=== PATIENT | female | born 1930 | race Caucasian/White ===

== ENCOUNTER 2017-07-18 13:19 | Emergency (ER) | payer MEDICARE, OTHER ==
[~2017-07-18] VITALS: Ht 170.2 cm; Wt 65.8 kg
[~2017-07-18 13:19] MED LIST: ACEBUTOLOL HCL200 MG PO; ACYCLOVIR400 MG PO; ADULT LOW DOSE81 MG PO; AMLODIPINE BESY10 MG PO; CALCIUM 500 +1 EAC1 PO; CALCIUM500 MG PO; CARTIA XT120 MG PO; CENTRUM SILVER1 EAC1 PO; CLINDAMYCIN HC300 MG PO; DOXAZOSIN MESYLA2 MG PO; FOSAMAX PLUS D1 EACH PO; LOSARTAN-HCTZ1 EAC1 PO; LOVASTATIN20 MG PO; METOPROLOL TART50 MG PO; MULTI VITAMIN1 EACH PO; NORCO 5-325 TA1 EACH PO; POTASSIUM CHLO20 ME1 PO; SYNTHROID112 MCG PO
[2017-07-18] MEDS ORDERED: ZITHROMAX250 MG PO (14:07)
--- OUTSIDE RECORDS SUMMARY | 2017-07-18 15:01 | XMS | Clinical Summary ---
Demographics + + + | Address | [address] | | | [place] [address] | + + + | Home Phone | | + + + | Preferred Language | Unknown | + + + | Marital Status | | + + + | Congregation Affiliation | Unknown | + + + | Race | White | + + + | Ethnic Group | Not or | + + + Author + + + | Author | [facility] | + + + | Organization | [facility] | + + + | Address | Unknown | + + + | Phone | Unavailable | + + + Support + + + + + | Name | Relationship | Address | Phone | + + + + + | Yari Lemon | ECON | [address] | | [place] | | [address] | | | | | [address] | | + + + + + Care Team Providers + +------+ + | Care Rice Farmworker Name | Role | Phone | + +------+ + | Chirag Starr MD | PP | | + +------+ + Source Comments [facility] is fully live on both [facility] and [facility]Patient.[facility] Allergies No Known Allergies Current Medications + + +-------+---------+------+------+-------+ | Prescription | Sig. | Disp. | Refills | Star | End | Statu | | | | | | t | Date | s | | | | | | Date | | | + + +-------+---------+------+------+-------+ | METOPROLOL | Take by mouth. | | | | | Activ | | TARTRATE ORAL | | | | | | e | + + +-------+---------+------+------+-------+ | POTASSIUM ORAL | Take by mouth. | | | | | Activ | | | | | | | | e | + + +-------+---------+------+------+-------+ | LOSARTAN POTASSIUM | Take by mouth. | | | | | Activ | | (LOSARTAN ORAL) | | | | | | e | + + +-------+---------+------+------+-------+ | ACYCLOVIR ORAL | Take by mouth. | | | | | Activ | | | | | | | | e | + + +-------+---------+------+------+-------+ | aspirin 325 mg | Take 325 mg by mouth | | | | | Activ | | Oral Tablet | once daily. | | | | | e | + + +-------+---------+------+------+-------+ | DOXAZOSIN MESYLATE | Take by mouth. | | | | | Activ | | (DOXAZOSIN ORAL) | | | | | | e | + + +-------+---------+------+------+-------+ | DILTIAZEM HCL | Take by mouth. | | | | | Activ | | (CARTIA XT ORAL) | | | | | | e | + + +-------+---------+------+------+-------+ | LOVASTATIN ORAL | Take by mouth. | | | | | Activ | | | | | | | | e | + + +-------+---------+------+------+-------+ | LEVOTHYROXINE | Take by mouth. | | | | | Activ | | SODIUM | | | | | | e | | (LEVOTHYROXINE ORAL) | | | | | | | + + +-------+---------+------+------+-------+ Active Problems + + + | Problem | Noted Date | + + + | Retinal edema | 07/03/2011 | + + + | Pseudophakia, both eyes | 07/03/2011 | + + + Encounters +--------+ + + + + | Date | Type | Specialty | Care Team | Description | +--------+ + + + + | 05/20/ | Hospital | | | | | 2017 | Encounter | | | | +--------+ + + + + | 04/21/ | Hospital | | | | | 2016 | Encounter | | | | +--------+ + + + + from Last 3 Months Social History + +-------+ +--------+------+ | Tobacco Use | Types | Packs/Day | Years | Date | | | | | Used | | + +-------+ +--------+------+ | Former Smoker | | | | | + +-------+ +--------+------+ + +---+---+---+ | Smokeless Tobacco: | | | | | Never Used | | | | + +---+---+---+ + + + | Sex Assigned at | Date Recorded | | | | + + + | Not on file | | + + + Plan of Treatment + + + + + | Health Maintenance | Due Date | Last Done | Comments | + + + + + | INFLUENZA VACCINE | | | | | (FLU SHOT) | 7 | | | + + + + + Results DERM PATHOLOGY (05/20/2017)Only the most recent of 2 results within the time period is incl uded. + + + + | Component | Value | Ref Range | + + + + | DERMATOPATHOLOGY(WET | SOURCE OF SPECIMEN:A Rt. sorensen, | | | MNT) | excision CLINICAL DESCRIPTION:R/o | | | | residual melanocytic nevus with atypical | | | | features; [id number]. GROSS | | | | DESCRIPTION:Received in formalin is a | | | | specimen labeled Yari Lemon:A: | | | | Specimen is labeled "Rt sorensen" and consists | | | | of an elliptical excision ofred-stahl skin, | | | | [id number]. The surgical margin is inked | | | | blue; the tissue isserially sectioned, and | | | | entirely submitted in cassette A1. | | | | MICROSCOPIC DESCRIPTION:There are an | | | | increased number of collagen bundles with | | | | fibrocytes arrangedparallel to the skin | | | | surface with vertically oriented blood | | | | vessels. DIAGNOSIS:SCAR. | | | | NOTE: No residual melanocytic neoplasm is | | | | seen in these sections; the rightshin | | | | melanocytic neoplasm is completely | | | | excised. My electronic signature | | | | indicates that I have personally reviewed | | | | alldiagnostic slides, the gross and/or | | | | microscopic portion of thisreport and | | | | formulated the final diagnosis. | | | | Electronically signed by: Henrietta | | | | Jaden OwensPathologistDate Completed: | | | | 05/22/2017 2:16PM | | | |Date Completed: 05/22/2017 2:16PM | | + + + + + + + | Specimen | Performing Laboratory | + + + | | [facility] DERMATOPATHOLOGY Mailcode CH5D [address] [facility] | | | [place] [address] | + + + from Last 3 Months
--- OUTSIDE RECORDS SUMMARY | 2017-07-18 15:01 | XMS | Encounter Summary ---
Demographics + + + | Address | [address] | | | [place] [address] | + + + | Home Phone | | + + + | Preferred Language | Unknown | + + + | Marital Status | | + + + | Bahai Affiliation | Unknown | + + + | Race | White | + + + | Ethnic Group | Not or | + + + Author + + + | Author | [facility] | + + + | Organization | [facility] | + + + | Address | Unknown | + + + | Phone | Unavailable | + + + Support + + + + + | Name | Relationship | Address | Phone | + + + + + | Yari Lemon | [place] | [address] | | | [place] | | [address] | | | | | [address] | | + + + + + Care Team Providers + +------+ + | Care Black Top Spreader Machine Operator Name | Role | Phone | + +------+ + | Chirag Starr MD | PCP | | + +------+ + Encounter Details +--------+ + + + + | Date | Type | Department | Care Team | Description | +--------+ + + + + | 05/20/ | Hospital | Dermatopathology | | | | 2018 | Encounter | [address] | | | | | | Mail Code: CH16D | | | | | | [facility] | | | | | | and Healing, 5th | | | | | | floor [place], [place] | | | | | | [address] | | | | | | [phone] | | | +--------+ + + + + Social History + +-------+ +--------+------+ | Tobacco [...] on file | | + + + as of this encounter Medications at Time of Discharge + + +-------+---------+--------+ + | Medication | Sig. | Disp. | Refills | Start | End Date | | | | | | Date | | + + +-------+---------+--------+ + | ACYCLOVIR ORAL | Take by mouth. | | | | | + + +-------+---------+--------+ + | aspirin 325 mg | Take 325 mg by mouth | | | | | | Oral Tablet | once daily. | | | | | + + +-------+---------+--------+ + | DILTIAZEM HCL | Take by mouth. | | | | | | (CARTIA XT ORAL) | | | | | | + + +-------+---------+--------+ + | DOXAZOSIN MESYLATE | Take by mouth. | | | | | | (DOXAZOSIN ORAL) | | | | | | + + +-------+---------+--------+ + | LEVOTHYROXINE | Take by mouth. | | | | | | SODIUM | | | | | | | (LEVOTHYROXINE ORAL) | | | | | | + + +-------+---------+--------+ + | LOSARTAN POTASSIUM | Take by mouth. | | | | | | (LOSARTAN ORAL) | | | | | | + + +-------+---------+--------+ + | LOVASTATIN ORAL | Take by mouth. | | | | | + + +-------+---------+--------+ + | METOPROLOL | Take by mouth. | | | | | | TARTRATE ORAL | | | | | | + + +-------+---------+--------+ + | POTASSIUM ORAL | Take by mouth. | | | | | + + +-------+---------+--------+ + as of this encounter Plan of Treatment Not on fileas of this encounter Results DERM PATHOLOGY (05/20/2017) + + + + | Component | Value | Ref Range | + + + + | DERMATOPATHOLOGY(WET | SOURCE OF SPECIMEN:A Rt. sorensen, | | | INDIANAT) | excision CLINICAL DESCRIPTION:R/o | | | | residual melanocytic nevus with atypical | | | | features; [id number]. GROSS | | | | DESCRIPTION:Received in formalin is a | | | | specimen labeled Yari Lemon:A: | | | | Specimen is labeled "Rt sorensen" and consists | | | | of an elliptical excision ofred-stahl skin, | | | | [id number]. The surgical margin is inked | | [...] Laboratory | + + + | | [facility] DERMATOP[facility]OLOGY Mailcode CH5D [address] [facility] [facility] | | | [place] [address] | + + + in this encounter Visit Diagnoses + + | Diagnosis | + + | Scar conditions and fibrosis of skin | + + | Scar condition and fibrosis of skin | + + Admitting Diagnoses + + | Diagnosis | + + | Neoplasm of uncertain behavior of skin | + +
--- OUTSIDE RECORDS SUMMARY | 2017-07-18 15:01 | XMS | Encounter Summary ---
Demographics + + + | Address | [address] | | | [place] [address] | + + + | Home Phone | | + + + | Preferred Language | Unknown | + + + | Marital Status | | + + + | Moravian Affiliation | Unknown | + + + | Race | White | + + + | Ethnic Group | Not or | + + + Author + + + | Author | [facility] | + + + | Organization | [facility] | + + + | Address | Unknown | + + + | Phone | Unavailable | + + + Support + + + + + | Name | Relationship | Address | Phone | + + + + + | Yari Lemon | [place] | [address] | | | [place] | | [address] | | | | | [address] | | + + + + + Care Team Providers + +------+ + | Care Director Of Culture Name | Role | Phone | + +------+ + | Chirag Starr MD | PCP | | + +------+ + Encounter Details +--------+ + + + + | Date | Type | Department | Care Team | Description | +--------+ + + + + | 04/21/ | Hospital | Dermatopathology | | | | 2016 | Encounter | [address] | | | | | | Mail Code: CH16D | | | | | | [facility] | | | | | | and Healing, 5th | | | | | | floor [place], [place] | | | | | | [address] | | | | | | [phone] | | | +--------+ + + + [...] fileas of this encounter Results DERM PATHOLOGY (04/21/2017) + + + + | Component | Value | Ref Range | + + + + | DERMATOPATHOLOGY(WET | SOURCE OF SPECIMEN:A Lt. arm, shave | | | MNT) | biopsySOURCE OF SPECIMEN:B Rt. sorensen, shave | | | | biopsy CLINICAL DESCRIPTION:A: 5 x | | | | 6 mm pink papule; r/o NMSC.B: 4 x 4 mm | | | | hyperpigmented macule; r/o dysplastic | | | | nevus. GROSS DESCRIPTION:Received | | | | in formalin are two specimens labeled | | | | Yari Lemon:A: Specimen is labeled "Lt | | | | arm" and consists of an irregular shave | | | | ofpapular white-stahl skin, [id number]. The | | | | surgical margin is inked blue; thetissue is | | | | bisected, and entirely submitted in | | | | cassette A1.B: Specimen is labeled "Rt | | | | sorensen" and consists of an irregular shave | | | | ofpapular patchy ucgif-szz-fbiyf skin, | | | | [id number]. The surgical margin is inkedblue; | | | | the tissue is bisected, and entirely | | | | submitted in cassette B1. | | | | MICROSCOPIC DESCRIPTION:In the left arm | | | | shave biopsy, there are aggregates of cells | | | | withhyperchromatic nuclei, scant cytoplasm | | | | and palisading of the peripheralnuclei, | | | | emanating from the undersurface of the | | | | epidermis. In the right sorensen shave | | | | biopsy, there is a moderately broad, less | | | | thansharply circumscribed, and slightly | | | | asymmetric compound melanocyticneoplasm | | | | composed of nests and single melanocytes | | | | distributed slightlyirregularly along the | | | | epidermal basal cell layer and rare nests | | | | and singlemelanocytes in the dermis. The | | | | melanocytic nuclei are moderately large | | | | andthe cells have amphophilic cytoplasm. | | | | Immunohistochemical staining formelan-A is | | | | obtained and supports the above | | | | findings. DIAGNOSIS:A: BASAL CELL | | | | CARCINOMA, SUPERFICIAL PATTERN.(LEFT | | | | ARM) NOTE: The left arm BASAL CELL | | | | CARCINOMA extends to the surgical margins | | | | ofthe shave specimen and additional | | | | treatment to ensure complete removalwould | | | | be prudent. B: MELANOCYTIC NEVUS, | | | | COMPOUND TYPE WITH ATYPICAL FEATURES. | | | | (RIGHT SORENSEN) NOTE: Slight | | | | asymmetry, less than sharp circumscription, | | | | and mildmelanocytic nuclear pleomorphism | | | | are all atypical findings in the rightshin | | | | melanocytic neoplasm. The neoplasm extends | | | | to one of the peripheralsurgical margins of | | | | the shave specimen and in light of the | | | | unconventionalfindings additional treatment | | | | to ensure complete removal would be | | | | prudent. VBK:jb04/23/17 My | | | | electronic signature indicates that I have | | | | personally reviewed alldiagnostic slides, | | | | the gross and/or microscopic portion of | | | | thisreport and formulated the final | | | | diagnosis. Electronically signed | | | | by: Henrietta Stanley | | | | GracielaPathologistDate Completed: | | | | 04/24/2017 7:28PM | | + + + + + + + | Specimen | Performing Laboratory | + + + | | [facility] Mailcode CH5D [address] [facility] | | | [place] [address] | + + + in this encounter Visit Diagnoses + + | Diagnosis | + + | Basal cell carcinoma of skin of left upper limb, including shoulder | + + | Basal cell carcinoma of skin of upper limb, including shoulder | + + | Neoplasm of uncertain behavior of skin | + + Admitting Diagnoses + + | Diagnosis | + + | Neoplasm of uncertain behavior of skin | + +
--- OUTSIDE RECORDS SUMMARY | 2017-07-18 15:01 | XMS | Clinical Summary ---
Demographics + + + | Address | [address] | | | [place] [address] | + + + | Home Phone | | + + + | Preferred Language | Unknown | + + + | Marital Status | | + + + | Church Affiliation | Unknown | + + + | Race | White | + + + | Ethnic Group | Not or | + + + Author + + + | Author | [facility] | + + + | Organization | [facility] | + + + | Address | Unknown | + + + | Phone | Unavailable | + + + Support + + + + + | Name | Relationship | Address | Phone | + + + + + | Yari Lemon | ECON | [address] | | [place] | | [address] | | | | | [address] | | + + + + + Care Team Providers + +------+ + | Care Manufacturing Process Engineer Name | Role | Phone | + +------+ + | Chirag Starr MD | PP | | + +------+ + Source Comments [facility] is fully live on both [facility] and [facility] Allergies No Known Allergies Current Medications + [...] with atypical | | | | features; [id number]. GROSS | | | | DESCRIPTION:Received in formalin is a | | | | specimen labeled Yari Lemon:A: | | | | Specimen is labeled "Rt sorensen" and consists | | | | of an elliptical excision ofred-stahl skin, | | | | [id number]. The surgical margin is inked | | [...] Laboratory | + + + | | [facility] DERMATOPATHOLOGY Mailcode CH5D [address] [facility] | | | [place] [address] | + + + from Last 3 Months
--- OUTSIDE RECORDS SUMMARY | 2017-07-18 15:01 | XMS | Encounter Summary ---
Demographics + + + | Address | [address] | | | [place] [address] | + + + | Home Phone | | + + + | Preferred Language | Unknown | + + + | Marital Status | | + + + | Gnosticism Affiliation | Unknown | + + + | Race | White | + + + | Ethnic Group | Not or | + + + Author + + + | Author | [facility] | + + + | Organization | [facility] | + + + | Address | Unknown | + + + | Phone | Unavailable | + + + Support + + + + + | Name | Relationship | Address | Phone | + + + + + | Yari Lemon | [place] | [address] | | | [place] | | [address] | | | | | [address] | | + + + + + Care Team Providers + +------+ + | Care Engineering Administrator Name | Role | Phone | + [...] CH16D | | | | | | [facility] | | | | | | and Healing, 5th | | | | | | floor [place], [place] | | | | | | [address] | | | | | | [phone] | | | +--------+ + + + [...] | | | | ofpapular white-stahl skin, [id number]. The | | | | surgical margin is inked blue; thetissue is | | | | bisected, and entirely submitted in | | | | cassette A1.B: Specimen is labeled "Rt | | | | sornesen" and consists of an irregular shave | | | | ofpapular patchy zhqvc-hux-qozhz skin, | | | | [id number]. The surgical margin is inkedblue; | | [...] | | [facility] Mailcode CH5D [address] [facility] | | | [place] [address] | + + + in this encounter [...]
--- OUTSIDE RECORDS SUMMARY | 2017-07-18 15:01 | XMS | Encounter Summary ---
Demographics + + + | Address | [address] | | | [place] [address] | + + + | Home Phone | | + + + | Preferred Language | Unknown | + + + | Marital Status | | + + + | Bahai Affiliation | Unknown | + + + | Race | White | + + + | Ethnic Group | Not or | + + + Author + + + | Author | [facility] | + + + | Organization | [facility] | + + + | Address | Unknown | + + + | Phone | Unavailable | + + + Support + + + + + | Name | Relationship | Address | Phone | + + + + + | Yari Lemon | [place] | [address] | | | [place] | | [address] | | | | | [address] | | + + + + + Care Team Providers + +------+ + | Care Assistant Professor Of Radiology Name | Role | Phone | + [...] CH16D | | | | | | [facility] | | | | | | and Healing, 5th | | | | | | floor [place], [place] | | | | | | [address] | | | | | | [phone] | | | +--------+ + + + [...] with atypical | | | | features; [id number]. GROSS | | | | DESCRIPTION:Received in formalin is a | | | | specimen labeled Yari Lemon:A: | | | | Specimen is labeled "Rt sorensen" and consists | | | | of an elliptical excision ofred-stahl skin, | | | | [id number]. The surgical margin is inked | | [...] Laboratory | + + + | | [facility] DERMATOPATHOLOGY Mailcode CH5D [address] [facility] | | | [place] [address] | + + + in this encounter Visit Diagnoses + + | Diagnosis | + + | Scar conditions and fibrosis of skin | + + | Scar condition and fibrosis of skin | + + Admitting Diagnoses + + | Diagnosis | + + | Neoplasm of uncertain behavior of skin | + +
[2017-07-24] MEDS ORDERED: SYNTHROID125 MCG PO (10:56)
[2017-09-25] MEDS ORDERED: CALCIUM 500 +1 EAC1 PO (10:18)
== END 2017-07-18 15:45 | disposition home or self-care (01) ==
LOC: ED 13:19
DX: J32.9 Chronic sinusitis, unspecified (principal); I10 Essential (primary) hypertension; Z88.5 Allergy status to narcotic agent; Z79.899 Other long term (current) drug therapy
CPT/HCPCS: 99283; J7120

== ENCOUNTER 2021-08-31 09:17 | Emergency (ER) | payer MEDICARE, OTHER ==
[~2021-08-31] VITALS: Ht 172.7 cm; Wt 74.4 kg
[~2021-08-31 09:17] MED LIST changes: +CALQUENCE100 MG PO; +CITRUCEL POWDE454 GM PO; +COZAAR100 MG PO; +DESOXIMETASONE15 G3 TOP; +ELIQUIS5 MG PO; +FLECAINIDE ACET50 MG PO; +HYDROCHLOROTHIA25 MG PO; +MELATONIN5 M2 PO; +METOPROLOL SUCC50 MG PO; +SYNTHROID125 MCG PO; +ZITHROMAX250 MG PO
== END 2021-08-31 10:20 | disposition home or self-care (01) ==
LOC: ED 09:17
DX: L76.22 Postprocedural hemorrhage of skin and subcutaneous tissue following other procedure (principal); I10 Essential (primary) hypertension; I48.91 Unspecified atrial fibrillation; Z88.5 Allergy status to narcotic agent; Z79.01 Long term (current) use of anticoagulants; Z79.899 Other long term (current) drug therapy
CPT/HCPCS: 99283